=== PATIENT | female | born 1955 | race Hispanic/Latino ===

== ENCOUNTER → 2019-03-29 | Outpatient (CLI) | payer OTHER ==
[~2019-03-29] MED LIST: REGADENOSON 0.4 MG/5 ML PF SYG IVP SCH
== END | disposition home or self-care (01) ==
LOC: SHCH 07:58
PROVIDERS: ATTEND Internal Medicine Cardiovascular Disease
DX: I25.10 Atherosclerotic heart disease of native coronary artery without angina pectoris (principal)
CPT/HCPCS: 78452; 93017; 96374; A9500 ×2; J2785

== ENCOUNTER 2021-09-04 05:50 | Day surgery (SDC) | payer OTHER ==
[2021-08-29 16:03] LABS: BASOPHILS % (AUTO) 0.4 % (0.0-5.0); EOSINOPHILS % (AUTO) 0.9 % (0.0-8.0); HEMATOCRIT 42.2 % (36-48); LYMPHOCYTES % (AUTO) 17.4 % (21.0-51.0); MEAN CORPUSCULAR HEMOGLOBIN 29.4 pg (27.0-33.0); MEAN CORPUSCULAR HGB CONC 31.8 g/dL (32.0-36.0); MEAN CORPUSCULAR VOLUME 92.5 fL (79-99); MONOCYTES % (AUTO) 3.2 % (3.0-13.0); NEUTROPHILS % (AUTO) 77.7 % (40.0-77.0); PLATELET COUNT (AUTO) 279 K/uL (130-400); RED BLOOD CELL COUNT(AUTO) 4.56 MIL/uL (4.00-5.50); RED CELL DISTRIBUTION WIDTH 13.3 % (11.0-15.5); WHITE BLOOD COUNT (AUTO) 10.8 K/uL (4.8-10.8)
[2021-08-29 16:10] LABS: CREATININE 0.7 mg/dL (0.5-1.5); POTASSIUM 5.1 mmol/L (3.5-5.1)
[2021-09-03 09:31] VITALS: BP 160/74
[2021-09-04] VITALS (16 sets, daily range): BP systolic 119–149; BP diastolic 41–62
[~2021-09-04] VITALS: Ht 154.9 cm; Wt 75.4 kg
[~2021-09-04 05:50] MED LIST changes: +DULO60CA64 PO; +EMPA1TAB7 PO; +ERGO500093 PO; +GABA600T10 PO; +INSU100V37 SQ; +LEVO-170 PO; +LINA145C PO; +LOSA100T58 PO; +OMEP40CA21 PO; +OXYB5TAB15 PO; -REGADENOSON 0.4 MG/5 ML PF SYG IVP SCH; +ROSU10TA28 PO; +SEMA7TAB2 PO; +TRAM50TA4 PO; +TYLENOL ARTHRITIS PO
[2021-09-04] MEDS: CEFAZOLIN SODIUM 1 GM VIAL IVP SCH ×2 (06:00→09:00)
[2021-09-04] MEDS ORDERED: LACTATED RINGERS 1000ML 1,000 ML IV SCH (06:00)
[2021-09-04] MEDS ORDERED: 0.9%NACL 1000ML 1,000 ML IV ONE (06:42)
[2021-09-04] MEDS ORDERED: MIDAZOLAM HCL 1 MG/ML 2ML VIAL ONE (08:07)
[2021-09-04] MEDS ORDERED: SUCCINYLCHOLINE 200MG/10ML SYR ONE (08:07)
[2021-09-04] MEDS ORDERED: ROCURONIUM 10MG/1ML SYR 10 MG/ML ML ONE (08:07)
[2021-09-04] MEDS ORDERED: PROPOFOL 10 MG/ML 20ML VIAL IV ONE (08:07)
[2021-09-04] MEDS ORDERED: LIDOCAINE PF 100MG/5ML (2%) SYRINGE 5ML ONE (08:07)
[2021-09-04] MEDS ORDERED: FENTANYL CITRATE PF 50 MCG/1 ML 2ML VIAL ONE (08:08)
[2021-09-04] MEDS ORDERED: ROPIVACAINE 0.5% 5MG/ML 30ML IJ ONE (08:51)
[2021-09-04] MEDS ORDERED: DEXAMETHASONE SOD PHOSPHATE 10MG/ML 1ML VIAL ONE (08:57)
[2021-09-04] MEDS ORDERED: EPHEDRINE SULFATE 50 MG/ML AMPULE ONE (09:18)
[2021-09-04] MEDS ORDERED: GLYCOPYRROLATE 1 MG/5 ML SYRINGE ONE (10:23)
[2021-09-04] MEDS ORDERED: NEOSTIGMINE 5MG/5ML SYR IV ONE (10:23)
== END 2021-09-04 12:15 | disposition home or self-care (01) ==
LOC: DAH 05:50
PROVIDERS: ATTEND Orthopaedic Surgery
DX: M75.112 Incomplete rotator cuff tear or rupture of left shoulder, not specified as traumatic (principal); M75.02 Adhesive capsulitis of left shoulder; Z20.822 Contact with and (suspected) exposure to COVID-19; M25.712 Osteophyte, left shoulder; G89.18 Other acute postprocedural pain; E03.9 Hypothyroidism, unspecified; G47.30 Sleep apnea, unspecified; I10 Essential (primary) hypertension; F41.9 Anxiety disorder, unspecified; E11.9 Type 2 diabetes mellitus without complications; E78.00 Pure hypercholesterolemia, unspecified; F32.A Depression, unspecified; Z79.899 Other long term (current) drug therapy; Z98.890 Other specified postprocedural states; Z79.01 Long term (current) use of anticoagulants; Z79.84 Long term (current) use of oral hypoglycemic drugs
CPT/HCPCS: 29827; 36415; 64415; 76942; 80048; 82948 ×2; 85025; 87635; A4213; A4215; A4221; A4222; A4223; A4649 ×3; A4663; A6204; A6207; A6223; A6260; C1713; C9803; J0330; J0690; J1100; J2001; J2250; J2704; J2710; J2795; J3490 ×2; J7030; J3010

== ENCOUNTER 2023-04-30 15:26 | Emergency (ER) | payer OTHER ==
[~2023-04-30 15:26] MED LIST changes: -LOSA100T58 PO; +LOSA100T59 PO; -OXYB5TAB15 PO; +OXYB5TAB20 PO
[2023-04-30 15:29] VITALS: O2SAT 98
[2023-04-30 15:31] VITALS: BP 156/52; PULSE 83; RESP 18
[2023-04-30] MEDS ORDERED: TETANUS/DIPHTHERIA TOXOID [ADULT] 0.5 ML VIAL IM ONE (18:00)
[2023-04-30] MEDS ORDERED: KETOROLAC 30MG VIAL (30MG/ML) IM ONE (18:00)
[2023-04-30] MEDS ORDERED: CYCLOBENZAPRINE HCL 10 MG TABLET PO ONE (18:00)
[2023-04-30] MEDS ORDERED: IBUP-2070 PO (19:39)
[2023-04-30] MEDS ORDERED: CYCL5TAB PO (19:39)
== END 2023-04-30 19:44 | disposition home or self-care (01) ==
LOC: EDH 15:26
DX: S16.1XXA Strain of muscle, fascia and tendon at neck level, initial encounter (principal); V89.2XXA Person injured in unspecified motor-vehicle accident, traffic, initial encounter; Y93.I9 Activity, other involving external motion; Y92.488 Other paved roadways as the place of occurrence of the external cause; Y99.8 Other external cause status
CPT/HCPCS: 99285; 72125; 71045; 90714; 96372; 90471; J1885